=== PATIENT | male | born 1985 | race Caucasian/White ===

== ENCOUNTER 2019-12-10 12:09 | Emergency (ER) | payer MEDICAID ==
[~2019-12-10] VITALS: Ht 188 cm; Wt 116.5 kg
[2019-12-10 12:11] VITALS: BP 129/78
--- NOTE | 2019-12-10 13:13 | NUR ---
pt ambulates with partner with steady gait from lobby to room at this time. pt educated on er process and verbalizes understanding.
[2019-12-10] MEDS ORDERED: DIPH,PERTUSS(ACELL),TET VAC/PF 0.5 ML IM-VACC ONE ×2 (13:23→13:30)
[2019-12-10] MEDS ORDERED: LIDOCAINE-MPF 1%, 5ML ONE (13:24)
[2019-12-10] MEDS ORDERED: LIDOCAINE-MPF 1%, 5ML INFIL ONE (13:30)
[2019-12-10] MEDS ORDERED: NEOSPORIN OINT. PKT 1 PACKET ONE (14:29)
[2019-12-10] MEDS ORDERED: IBUPROFEN 600 MG TABLET ONE (14:38)
[2019-12-10] MEDS ORDERED: IBUPROFEN 600 MG TABLET PO ONE (15:00)
--- NOTE | 2019-12-10 15:16 | NUR ---
PT D/C WITH D/C SUMMARY AND SCRIPTS. ALL QUESTIONS ANSWERED. PT AMBULATES TO REGISTRATION DESK WITH STEADY GAIT FOR D/C HOME. PT PROVIDED A WORK NOTE PER PT REQUEST. PT DENIES ANY OTHER NEEDS PERTAINING TO THIS VISIT.
== END 2019-12-10 15:18 ==
LOC: ED 15:00
DX: S51.812A Laceration without foreign body of left forearm, initial encounter (principal); W26.0XXA Contact with knife, initial encounter; Y93.89 Activity, other specified; Y92.098 Other place in other non-institutional residence as the place of occurrence of the external cause; Y99.8 Other external cause status
CPT/HCPCS: 12031; 90471; 90715; 99284

== ENCOUNTER 2020-04-09 18:54 | Emergency (ER) | payer MEDICAID ==
[~2020-04-09] VITALS: Ht 188 cm; Wt 111.3 kg
--- NOTE | 2020-04-09 19:32 | NUR ---
pt to room and caox3, ambulating without problems. 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 occasional slurred words. RN dysphagia test done, and took 90ml po water without issue. Pt to ct for head ct w/o contrast.
[2020-04-09 20:54] LABS: BASOPHILS % (AUTO) 1 % (0-1); EOSINOPHILS % (AUTO) 2 % (1-7); LYMPHOCYTES % (AUTO) 30 % (22-44); MEAN CORPUSCULAR HEMOGLOBIN 31.3 pg (27.5-34.5); MEAN PLATELET VOLUME 7.9 fL (7.4-10.4); MONOCYTES % (AUTO) 9 % (2-9); NEUTROPHILS % (AUTO) 58 % (42-75); PLATELET COUNT 300 x10^3/uL (130-400); RED CELL DISTRIBUTION WIDTH 12.9 % (9.4-14.8)
[2020-04-09 20:59] LABS: ALANINE AMINOTRANSFERASE 144 U/L (12-78); ALBUMIN 3.2 g/dL (3.4-5.0); ANION GAP 5 mmol/L (5-15); CALCIUM 8.5 mg/dL (8.5-10.1); CHLORIDE 108 mmol/L (98-107); CREATININE 0.76 mg/dL (0.7-1.3)
[2020-04-09 21:02] LABS: ALKALINE PHOSPHATASE 62 U/L (45-117); BILIRUBIN,TOTAL 0.8 mg/dL (0.2-1.0); TOTAL PROTEIN 6.5 g/dL (6.4-8.2)
[2020-04-09 21:19] LABS: MD NO
[2020-04-09 21:36] VITALS: BP 136/69
== END 2020-04-09 21:39 | disposition home or self-care (01) ==
LOC: ED 19:12
DX: U07.1 COVID-19 (principal); J12.9 Viral pneumonia, unspecified; B34.9 Viral infection, unspecified; R42 Dizziness and giddiness; R05 Cough; R47.02 Dysphasia; M79.89 Other specified soft tissue disorders
CPT/HCPCS: 36415; 70551; 71046; 80053; 85025; 93005; 93970; 99285

== ENCOUNTER 2020-06-30 17:23 | Emergency (ER) | payer MEDICAID ==
[~2020-06-30] VITALS: Ht 188 cm; Wt 119.8 kg
[2020-06-30 17:25] VITALS: BP 149/80
[2020-06-30] MEDS ORDERED: LIDOCAINE-MPF 1%, 5ML ONE (17:40)
[2020-06-30] MEDS ORDERED: LIDOCAINE 1%, 10ML INFIL ONE (18:30)
[2020-06-30] MEDS ORDERED: NEOSPORIN OINT. PKT 1 PACKET ONE (18:37)
== END 2020-06-30 18:58 | disposition home or self-care (01) ==
LOC: ED 18:46
DX: S61.216A Laceration without foreign body of right little finger without damage to nail, initial encounter (principal); X58.XXXA Exposure to other specified factors, initial encounter; Y93.89 Activity, other specified; Y92.009 Unspecified place in unspecified non-institutional (private) residence as the place of occurrence of the external cause; Y99.8 Other external cause status
CPT/HCPCS: 12041; 99284